=== PATIENT | male | born 1955 | race Caucasian/White ===

== ENCOUNTER 2019-12-21 16:01 | Emergency (ER) | payer OTHER ==
[~2019-12-21] VITALS: Ht 172.7 cm; Wt 90.7 kg
[~2019-12-21 16:01] MED LIST: [UNRECOGNIZED DRUG - OTHER] PO
[2019-12-21] MEDS ORDERED: AMLODIPINE-OLM1 EAC2 (16:30)
[2019-12-21] MEDS ORDERED: TOPROL XL50 M1 (16:30)
[2019-12-21] MEDS ORDERED: EZALLOR SPRINKL20 MG (16:31)
== END 2019-12-21 20:21 | disposition home or self-care (01) ==
LOC: ER 16:01
DX: I10 Essential (primary) hypertension (principal); F06.4 Anxiety disorder due to known physiological condition

== ENCOUNTER 2021-10-02 12:43 | Outpatient (CLI) | payer OTHER ==
[~2021-10-02 12:43] MED LIST changes: +AMLODIPINE-OLM1 EAC2; +EZALLOR SPRINKL20 MG; +TOPROL XL50 M1
== END 2021-10-02 12:52 | disposition home or self-care (01) ==
LOC: NUCLEAR 12:43
PROVIDERS: ATTEND Specialist
DX: M81.0 Age-related osteoporosis without current pathological fracture (principal)

== ENCOUNTER 2021-11-25 12:21 | Outpatient (CLI) | payer OTHER | END 2021-11-25 12:24 | disposition home or self-care (01) | LOC: SONOGRAMA 12:21 | PROVIDERS: ATTEND Specialist | DX: M75.51 Bursitis of right shoulder (principal) ==